=== PATIENT | female | born 1950 | race Caucasian/White ===

== ENCOUNTER 2021-04-16 11:02 | Outpatient (CLI) | payer OTHER | END 2021-04-20 11:10 | disposition home or self-care (01) | LOC: RAD 11:02 | DX: K59.09 Other constipation (principal) ==

== ENCOUNTER 2022-01-20 10:02 | Outpatient (CLI) | payer OTHER | END 2022-01-20 10:05 | disposition home or self-care (01) | LOC: SONOGRAMA 10:02 | PROVIDERS: ATTEND Pathology Anatomic Pathology & Clinical Pathology | DX: E04.2 Nontoxic multinodular goiter (principal); E06.3 Autoimmune thyroiditis ==

== ENCOUNTER 2022-12-26 08:45 | Inpatient (IN) | payer OTHER ==
[~2022-12-26] VITALS: Ht 154.9 cm; Wt 58.1 kg
[2022-12-26] MEDS ORDERED: ATORVASTATIN CA10 MG PO (10:33)
[2022-12-26] MEDS ORDERED: SYNTHROID112 MCG PO (10:33)
[2022-12-26] MEDS ORDERED: COZAAR25 MG PO (10:35)
[2022-12-26] MEDS ORDERED: PROPRANOLOL HCL10 MG PO (10:35)
[2023-01-02] MEDS ORDERED: VASOTEC20 MG (08:09)
[2023-01-02] MEDS ORDERED: LANSOPRAZOLE30 MG (08:09)
[2023-01-02] MEDS ORDERED: MAGNESIUM OXID500 MG (08:10)
[2023-01-02] MEDS ORDERED: LEVOCETIRIZINE D5 MG (08:10)
[2023-01-02] MEDS ORDERED: LORATADINE10 MG (08:10)
[2023-01-02] MEDS ORDERED: ATORVASTATIN CA20 MG (08:10)
[2023-01-02] MEDS ORDERED: CETIRIZINE HCL10 MG (08:10)
[2023-01-02] MEDS ORDERED: MONTELUKAST SOD10 MG (08:10)
[2023-01-02] MEDS ORDERED: AZELASTINE137 MCG/0. (08:10)
[2023-01-02] MEDS ORDERED: FLONASE16 GM (08:10)
[2023-01-02] MEDS ORDERED: ST. JOSEPH ASPI81 M2 (08:11)
== END 2023-01-02 21:18 | disposition home or self-care (01) | DRG 331 ==
LOC: SURH 12-30 08:45 → O/R 12-30 08:52 → SURH 12-30 15:15 → SURG 12-31 00:54 → SURH 12-31 13:08
PROVIDERS: ADMIT Colon & Rectal Surgery; ATTEND Colon & Rectal Surgery
PROC: 0DBP4ZZ Excision of Rectum, Percutaneous Endoscopic Approach (ICD-10-PCS; 2022-12-30)
PROC: 0DJD8ZZ Inspection of Lower Intestinal Tract, Via Natural or Artificial Opening Endoscopic (ICD-10-PCS; 2022-12-30)
PROC: 4A1BXSH Monitoring of Gastrointestinal Vascular Perfusion using Indocyanine Green Dye, External Approach (ICD-10-PCS; 2022-12-30)
PROC: 0DTN4ZZ Resection of Sigmoid Colon, Percutaneous Endoscopic Approach (ICD-10-PCS; principal; 2022-12-30 15:15)
DX: K57.32 Diverticulitis of large intestine without perforation or abscess without bleeding (principal); Z20.822 Contact with and (suspected) exposure to COVID-19

== ENCOUNTER 2024-03-13 08:55 | Day surgery (SDC) | payer OTHER ==
[~2024-03-13 08:55] MED LIST: ATORVASTATIN CA10 MG PO; ATORVASTATIN CA20 MG; AZELASTINE137 MCG/0.; CETIRIZINE HCL10 MG; COZAAR25 MG PO; FLONASE16 GM; LANSOPRAZOLE30 MG; LEVOCETIRIZINE D5 MG; LORATADINE10 MG; MAGNESIUM OXID500 MG; MONTELUKAST SOD10 MG; PROPRANOLOL HCL10 MG PO; ST. JOSEPH ASPI81 M2; SYNTHROID112 MCG PO; VASOTEC20 MG
[2024-03-13] MEDS ORDERED: DIPHENHYDRAMINE HCL 50 MG/ML VIAL 1ML IV ONE (12:15)
[2024-03-13] MEDS ORDERED: fentaNYL CITRATE 50 MCG/ML AMPUL IV PUSH ONE (12:15)
[2024-03-13] MEDS ORDERED: ONDANSETRON HCL 2 MG/ML VIAL IV ONE (12:15)
[2024-03-13] MEDS ORDERED: MIDAZOLAM HCL 2 MG/2 ML VIAL IV ONE (12:15)
== END 2024-03-13 14:10 | disposition home or self-care (01) ==
LOC: AMB-ENDOS 08:55
PROVIDERS: ATTEND Colon & Rectal Surgery
DX: K57.30 Diverticulosis of large intestine without perforation or abscess without bleeding (principal); Z91.02 Food additives allergy status